=== PATIENT | male | born 1960 | race Caucasian/White ===

== ENCOUNTER → 2017-09-06 | Outpatient (CLI) | payer BC | END | disposition home or self-care (01) | LOC: KCIC 12:00 | DX: M19.042 Primary osteoarthritis, left hand (principal); M19.041 Primary osteoarthritis, right hand; M76.52 Patellar tendinitis, left knee; M76.51 Patellar tendinitis, right knee | CPT/HCPCS: 73130; 73562 ==

== ENCOUNTER → 2019-06-01 | Outpatient (CLI) | payer BC ==
--- NOTE | 2019-06-01 12:53 | KCIC ---
BILATERAL HAND, VIEWS 3 Indication: Rheumatoid arthritis. COMPARISON: Bilateral hand radiographs September 06, 2017. Findings: Right: There is no acute fracture or dislocation. There is no bony erosion. No significant joint space narrowing is seen. Mineralization is normal. There is no radiographically apparent soft tissue swelling or radiopaque foreign body. Left: There is no acute fracture or dislocation. There is no bony erosion. No significant joint space narrowing. Mineralization is normal. There is no radiographically apparent soft tissue swelling or radiopaque foreign body. IMPRESSION: No bony erosion. Electronically signed by: Farhat Jones MD (06/01/2019 12:50 PM) [id number]
== END | disposition home or self-care (01) ==
LOC: KCIC 09:08
PROVIDERS: ATTEND Internal Medicine Rheumatology
DX: M05.79 Rheumatoid arthritis with rheumatoid factor of multiple sites without organ or systems involvement (principal)
CPT/HCPCS: 73130